=== PATIENT | female | born 1995 | race Caucasian/White ===

== ENCOUNTER → 2017-05-15 | Outpatient (CLI) | payer OTHER | LOC: COL.CARD 09:00 | DX: M62.838 Other muscle spasm (principal); R25.1 Tremor, unspecified; Z87.820 Personal history of traumatic brain injury ==

== ENCOUNTER → 2022-04-15 | Outpatient (CLI) | payer OTHER | LOC: COL.RAD 12:03 | DX: Z15.01 Genetic susceptibility to malignant neoplasm of breast (principal); Z15.09 Genetic susceptibility to other malignant neoplasm; Z91.89 Other specified personal risk factors, not elsewhere classified; Z90.710 Acquired absence of both cervix and uterus ==